=== PATIENT | male | born 1970 ===

== ENCOUNTER 2017-12-10 04:24 | Emergency (ER) | payer OTHER ==
[2017-12-10 04:39] VITALS: RESP 18
[2017-12-10] MEDS ORDERED: Naloxone 0.4 mg/ml Inj (Adult) IVP STA (04:58)
[2017-12-10] MEDS ORDERED: Multivitamin (MVI) 10 ML, Thiamine 100 MG, Folic Acid 1 MG in Sodium Chloride 0.9% 1,00... IV ONE (04:59)
--- NOTE | 2017-12-10 05:03 | ED PDOC ---
Arrival/HPI - General Chief Complaint: Alcohol Ingestion Time Seen by Provider: 12/10/17 04:52 Historian: Family - History of Present Illness Narrative History of Present Illness (Text): 12/10/17 04:58 A 47 year old male, whose past medical history includes diabetes and heroin use many years ago, is brought into the emergency department via EMS for further evaluation of hyperglycemia. As per the patient's daughter, he was out drinking alcohol this evening. EMS was called because family was concerned about his high blood glucose level and several episodes of vomiting at home. As per the daughter, she states that the patient has been in the emergency department twice this week for elevated blood glucose levels. She states that he is not following his diet. She also notes that the patient did not want to come into the emergency department this evening and denied any complaints to her. She states that he told her that he drank a lot this evening. HPI and ROS limited due to patient's intoxication. Time/Duration: Prior to Arrival Symptom Onset: Sudden Symptom Course: Unchanged, Improving Activities at Onset: Rest, Light Context: Home Past Medical History - Provider Review Nursing Documentation Reviewed: Yes - Endocrine/Metabolic Hx Diabetes Mellitus Type 1: Yes - Psychiatric Hx Substance Use: No - Surgical History Hx Appendectomy: Yes Hx Orthopedic Surgery: Yes (Brooks in L leg) - Anesthesia Hx Anesthesia: Yes Family/Social History - Physician Review Nursing Documentation Reviewed: Yes Family/Social History: CAD/MS Smoking Status: Heavy Smoker > 10 Cigarettes Daily Hx Alcohol Use: Yes Frequency of alcohol use: Few days per week Hx Substance Use: No Allergies/Home Meds Allergies/Adverse Reactions: Allergies chlordiazepoxide [From Librium] Allergy (Verified 12/10/17 04:37) VOMITING Review of Systems - Physician Review All systems were reviewed & negative as marked: Yes - Review of Systems Systems not reviewed;Unavailable: Intoxicated Physical Exam - Physical Exam Physical Exam Limitations: Intoxication Vital Signs Reviewed: Yes Vital Signs Pulse Resp BP Pulse Ox 12/10/17 04:38 89 18 113/61 95 Blood Pressure: Normal Pulse: Regular Respiratory Rate: Normal Appearance: Positive for: Well-Appearing, Non-Toxic, Comfortable Pain Distress: None Mental Status: Positive for: Alert and Oriented X 3 - Systems Exam Head: Present: Atraumatic, Normocephalic Pupils: Present: Pinpoint Extroacular Muscles: Present: EOMI Conjunctiva: Present: Normal Mouth: Present: Moist Mucous Membranes. No: Drooling Neck: Present: Normal Range of Motion Respiratory/Chest: Present: Clear to Auscultation, Good Air Exchange. No: Respiratory Distress, Accessory Muscle Use Cardiovascular: Present: Regular Rate and Rhythm, Normal S1, S2. No: Murmurs Abdomen: No: Tenderness, Distention, Peritoneal Signs Back: Present: Normal Inspection Upper Extremity: Present: Normal Inspection. No: Cyanosis, Edema Lower Extremity: Present: Normal Inspection. No: Edema Neurological: Present: Other (Formal neurological testing not possible due to patient's inebriation. ) Skin: Present: Warm, Dry, Normal Color. No: Rashes Psychiatric: Present: Alert, Oriented x 3, Normal Insight, Normal Concentration Medical Decision Making ED Course and Treatment: 12/10/17 05:05 Impression: A 47 year old male is brought into the emergency department via EMS with daughter for further evaluation of hyperglycemia. Differential Diagnosis included but are not limited to: Polysubstance abuse, Diabetes poorly controlled Plan: -- Labs -- Urinalysis -- Narcan -- IV Fluids -- Reassess and disposition Progress Notes: - Lab Interpretations I have reviewed the lab results: Yes - Medication Orders Current Medication Orders: Multivitamins/Vitamin C 10 ml/Thiamine HCl 100 mg/ Folic Acid 1 mg/ Sodium Chloride 1,011.2 mls @ 100 mls/hr IV ONCE ONE Stop: 12/10/17 15:05 Discontinued Medications Sodium Chloride 1,000 ml/ IV (SUPPLIES) 1,000 mls @ 6,667.8 mls/hr IV ONCE ONE PRN Reason: 60 ML/KG/HR Stop: 12/10/17 05:00 Naloxone HCl (Narcan) 0.4 mg IVP STAT STA Stop: 12/10/17 04:59 - Scribe Statement The provider has reviewed the documentation as recorded by the Scribe Federica Rodgers Provider Scribe Attestation: All medical record entries made by the Scribe were at my direction and personally dictated by me. I have reviewed the chart and agree that the record accurately reflects my personal performance of the history, physical exam, medical decision making, and the department course for this patient. I have also personally directed, reviewed, and agree with the discharge instructions and disposition. Disposition/Present on Arrival - Present on Arrival Any Indicators Present on Arrival: No History of DVT/PE: No History of Uncontrolled Diabetes: No Urinary Catheter: No History of Decub. Ulcer: No History Surgical Site Infection Following: None - Disposition Have Diagnosis and Disposition been Completed?: No Diagnosis: Polysubstance (including opioids) dependence without physiological dependence Disposition: HOME/ ROUTINE Disposition Time: 05:17 Patient Plan: Discharge Condition: FAIR Discharge Instructions (ExitCare): Drug Abuse and Drug Addiction (DC) Print Language: SOMALI [place] [facility] [place] [facility] [place] - Follow up with primary Forms: [employer] (Kinyarwanda)
[2017-12-10 05:50] LABS: BASO # 0.02 K/mm3 (0.0-2.0); BASO % 0.2 % (0.0-3.0); EOS # 0.1 (0.0-0.7); EOS % 0.8 % (1.5-5.0); GRAN # 7.01 (1.4-6.5); GRAN % 65.5 % (50.0-68.0); HEMOGLOBIN 14.6 g/dL (14.0-18.0); LYMPH # 3.2 (1.2-3.4); LYMPH % 29.6 % (22.0-35.0); MEAN CELL VOLUME 83.9 fl (80.0-105.0); MEAN CORPUSCULAR HGB CONC 34.6 g/dl (31.0-37.0); MEAN PLATELET VOLUME 9.9 fl (7.0-11.0); MONO # 0.4 (0.1-0.6); MONO % 3.9 % (1.0-6.0); RBC 5.03 10^6/uL (3.5-6.1); RED CELL DISTRIBUTION WIDTH 12.8 % (11.5-14.5); WHITE BLOOD COUNT 10.7 10^3/ul (4.5-11.0)
[2017-12-10 05:52] LABS: URINE BILIRUBIN NEGATIVE (NEGATIVE); URINE BLOOD TRACE-INTACT (NEGATIVE); URINE GLUCOSE (UA) >=1000 mg/dL (NEGATIVE); URINE LEUKOCYTE ESTERASE NEGATIVE Leu/uL (NEGATIVE); URINE PROTEIN NEGATIVE mg/dL (<30 mg/dL); URINE UROBILINOGEN 0.2 E.U./dL (<1 E.U./dL)
[2017-12-10 05:53] LABS: ACETAMINOPHEN < 10.0 ug/ml (10.0-20.0); SALICYLATE < 1 mg/dL (2.0-20.0)
[2017-12-10 06:04] LABS: URINE COLOR LIGHT YELLOW (YELLOW)
[2017-12-10 06:05] LABS: URINE APPEARANCE CLEAR (CLEAR)
[2017-12-10 06:11] LABS: ALB/GLOB RATIO 1.5 (1.1-1.8); ALBUMIN 4.2 g/dL (3.0-4.8); ALT/SGPT 18 U/L (7-56); AST/SGOT 34 U/L (17-59); BLOOD UREA NITROGEN 11 mg/dL (7-21); CALCIUM 8.8 mg/dL (8.4-10.5); GFR AFRICAN-AMERICAN > 60; GFR NON-AFRICAN AMERICAN > 60
[2017-12-10] MEDS ORDERED: Insulin Regular 1 UNITS/0.01 ML ML IV STA (06:12)
[2017-12-10 06:22] LABS: BARBITURATES, UR NEGATIVE (NEGATIVE); BENZODIAZEPINES, UR NEGATIVE (NEGATIVE); OPIATES, UR POSITIVE (NEGATIVE); PHENCYCLIDINE, UR NEGATIVE (NEGATIVE)
[2017-12-10 06:52] LABS: URINE BACTERIA TRACE (NEG); URINE WBC NEGATIVE /hpf (0-6)
[2017-12-10 07:58] VITALS: BP 118/79; PULSE 98; TEMP 97.8; O2SAT 98
== END 2017-12-10 07:58 | disposition home or self-care (01) ==
LOC: ED 04:24
DX: F11.20 Opioid dependence, uncomplicated (principal); F17.210 Nicotine dependence, cigarettes, uncomplicated; E10.9 Type 1 diabetes mellitus without complications; Z79.4 Long term (current) use of insulin
CPT/HCPCS: 80053; 80320; 80324; 80329; 80345; 80346; 80349; 80353; 80358; 80361; 81001; 83735; 83992; 85025; 96361; 96365; 96375; 99283; J2310; J3411; J7030